=== PATIENT | female | born 1970 | race Caucasian/White ===

== ENCOUNTER 2017-07-09 07:31 | Day surgery (SDC) | payer BC ==
[~2017-07-09] VITALS: Ht 167.6 cm; Wt 67.6 kg
[~2017-07-09 07:31] MED LIST: ARIP10 PO; BUPR150ER PO; CODE30 PO; CRUTCH3 USE; CYCL10 PO; Flomax0.4 MG PO; GAVILYTE-C SO4000 ML PO; IBUP400 PO; IBUP800 PO; LEVSOD50 PO; LITH300C PO; MELO7.5 PO; MODA200 PO; NAPR375 PO; NAPR500 PO; NUVIGIL150 MG; PROM25 PO
[2017-07-09] MEDS ORDERED: IBUP800 (07:55)
== END 2017-07-09 09:19 | disposition home or self-care (01) ==
LOC: ORSCSDS 07:31
PROVIDERS: Anesthesiology
PROC: 3E0R33Z Introduction of Anti-inflammatory into Spinal Canal, Percutaneous Approach (ICD-10-PCS; principal; 2017-07-09 08:30)
DX: M50.122 Cervical disc disorder at C5-C6 level with radiculopathy (principal); E03.9 Hypothyroidism, unspecified; Z87.891 Personal history of nicotine dependence; Z79.899 Other long term (current) drug therapy
CPT/HCPCS: J1040; J2250; J3010

== ENCOUNTER 2017-07-13 19:47 | Emergency (ER) | payer BC ==
[~2017-07-13] VITALS: Ht 167.6 cm; Wt 68.0 kg
[~2017-07-13 19:47] MED LIST changes: +IBUP800
[2017-07-13 21:20] LABS: BASOPHILS ABSOLUTE AUTO 0.02 K/mm3 (0.00-0.23); BASOPHILS PERCENT AUTO 0 % (0-2); EOSINOPHILS ABSOLUTE AUTO 0.01 K/mm3 (0.00-0.68); EOSINOPHILS PERCENT AUTO 0 % (0-6); Hematocrit 37.5 % (33.0-51.0); Hemoglobin 12.8 g/dL (11.5-16.0); IMMATURE GRAN ABSOLUTE AUTO 0.08 K/mm3 (0.00-0.10); IMMATURE GRAN PERCENT AUTO 1 % (0-1); LYMPHOCYTES ABSOLUTE AUTO 1.61 K/mm3 (0.84-5.20); LYMPHOCYTES PERCENT AUTO 15 % (21-46); MONOCYTES PERCENT AUTO 6 % (4-13); Mean Corpuscular HGB 30.5 pg (26.0-34.0); Mean Corpuscular HGB Conc 34.1 g/dL (31.5-36.5); Mean Corpuscular Volume 89 fL (80-100); Mean Platelet Volume 9.9 fL (9.1-12.4); NEUTROPHILS ABSOLUTE AUTO 8.66 K/mm3 (1.96-9.15); NEUTROPHILS PERCENT AUTO 79 % (41-73); Platelet Count 362 K/mm3 (150-400); RDW Coefficient Variation 11.9 % (11.7-14.2); RDW Standard Deviation 38.1 fL (35.1-46.3); White Blood Cell Count 10.98 K/mm3 (4.00-11.30)
[2017-07-13 21:37] LABS: Anion Gap 10 mmol/L (6-16); Blood Urea Nitrogen 15 mg/dL (8-24); Bun/Creatinine Ratio 16.3 (12.0-20.0); CO2, Blood 24 mmol/L (21-32); Calcium, Blood 8.9 mg/dL (8.5-10.1); Chloride, Blood 106 mmol/L (98-108); Creatinine, Blood 0.92 mg/dL (0.40-1.00); Free Thyroxine 0.84 ng/dL (0.70-1.60); Glomerular Filtration Rate >60 (60-); Glucose, Blood 137 mg/dL (70-99); Magnesium, Blood 2.4 mg/dL (1.6-2.4); Potassium, Blood 3.4 mmol/L (3.5-5.5); Sodium, Blood 140 mmol/L (136-145)
[2017-07-13 21:41] LABS: Thyroid Stimulating Hormone 0.556 uIU/mL (0.360-4.800)
== END 2017-07-13 22:22 | disposition home or self-care (01) ==
LOC: ER 19:47
PROVIDERS: Emergency Medicine
DX: R00.2 Palpitations (principal); F31.9 Bipolar disorder, unspecified; Z88.6 Allergy status to analgesic agent; Z88.8 Allergy status to other drugs, medicaments and biological substances; Z88.5 Allergy status to narcotic agent; Z79.899 Other long term (current) drug therapy; Z90.712 Acquired absence of cervix with remaining uterus; Z99.2 Dependence on renal dialysis; Z90.13 Acquired absence of bilateral breasts and nipples
CPT/HCPCS: 36415; 71046; 80048; 83735; 84439; 84443; 85025; 93005; 93010; 99283; J7030

== ENCOUNTER 2019-10-28 13:43 | Day surgery (SDC) | payer BC ==
[~2019-10-28] VITALS: Ht 167.6 cm; Wt 72.1 kg
[~2019-10-28 13:43] MED LIST changes: +MODA200; +Voltaren100 GM
--- NOTE | 2019-10-28 14:51 | NUR ---
10/28/19 [id number] RHINA SCHWARZ Received report from ISATU Sen. Patient is sleeping in pre op bed. IV IN PLACE - READY FOR OR. AWAITING CONSULT WITH SURGEON AND ANESTHESIA. wILL CONTINUE TO MONITOR.
--- NOTE | 2019-10-28 15:47 | NUR ---
10/28/19 1547 Ana Resendiz AND ABDIRAHMAN MURRIETA IN ROOM
--- NOTE | 2019-10-28 17:15 | NUR ---
10/28/19 1715 Nhung Gallegos PATIENT TO SDU AND ABLE TO TRANSFER TO CHAIR WITH MINIMAL ASSISTANCE. SPLINT IS STILL DRYING. ONCE PATIENT IS IN RECLINER, FOOT IS ELEVATED AND ICE APPLIED BEHIND THE KNEE. PATIENT STATES TO PAIN AT THIS TIME. PATIENT IS GIVEN WATER AND SNACK
== END 2019-10-28 17:46 | disposition home or self-care (01) ==
LOC: ORSCSDS 13:43
PROVIDERS: Podiatrist Foot & Ankle Surgery
PROC: 0SGN04Z Fusion of Left Metatarsal-Phalangeal Joint with Internal Fixation Device, Open Approach (ICD-10-PCS; principal; 2019-10-28 15:00)
DX: M20.12 Hallux valgus (acquired), left foot (principal); M20.5X2 Other deformities of toe(s) (acquired), left foot; Z87.891 Personal history of nicotine dependence; Z79.899 Other long term (current) drug therapy
CPT/HCPCS: A9270-GY; C1776; J0171; J0690; J1100; J1885; J2250; J2405; J2704; J3010; J7120

== ENCOUNTER → 2020-01-07 | Outpatient (CLI) | payer BC ==
[2020-01-09 13:15] LABS: Stool Occult Bld Immuno 1 Negative (NEGATIVE); Stool Occult Bld Immuno 2 Negative (NEGATIVE)
== END | disposition home or self-care (01) ==
LOC: LAB SHORT 07:50 → LAB 07:50
PROVIDERS: Internal Medicine Gastroenterology
DX: Z12.11 Encounter for screening for malignant neoplasm of colon (principal)
CPT/HCPCS: G0328

== ENCOUNTER 2020-11-19 08:46 | Day surgery (SDC) | payer BC ==
[~2020-11-19] VITALS: Ht 167.6 cm; Wt 69.6 kg
[2020-11-19] MEDS ORDERED: LINZESS72 MCG (09:40)
== END 2020-11-19 11:42 | disposition home or self-care (01) ==
LOC: ORSCSDS 08:46
PROVIDERS: Internal Medicine Gastroenterology
PROC: 0DBK8ZX Excision of Ascending Colon, Via Natural or Artificial Opening Endoscopic, Diagnostic (ICD-10-PCS; principal; 2020-11-19 10:30)
PROC: 0DBN8ZX Excision of Sigmoid Colon, Via Natural or Artificial Opening Endoscopic, Diagnostic (ICD-10-PCS; principal; 2020-11-19 10:30)
DX: Z12.11 Encounter for screening for malignant neoplasm of colon (principal); D12.5 Benign neoplasm of sigmoid colon; D37.4 Neoplasm of uncertain behavior of colon; Z79.899 Other long term (current) drug therapy
CPT/HCPCS: 88305; J2704; J7120

== ENCOUNTER → 2022-03-17 | Outpatient (CLI) | payer BC ==
[~2022-03-17] MED LIST changes: +LINZESS72 MCG
== END ==
LOC: LAB SHORT 10:09 → LAB 10:09
DX: R31.9 Hematuria, unspecified (principal)
CPT/HCPCS: 87086

== ENCOUNTER → 2022-04-21 | Outpatient (CLI) | payer BC ==
[2022-04-21 10:38] LABS: Microalbumin, Urine Quant. 6.07 mg/L (0.000-20.000); Protein, Urine Quantitative 11.6 mg/dL (0.0-11.9)
== END | disposition home or self-care (01) ==
LOC: LAB SHORT 08:01 → LAB 08:01 → LAB FUT 04-10 15:50
PROVIDERS: Internal Medicine Nephrology
DX: N18.30 Chronic kidney disease, stage 3 unspecified (principal); D63.1 Anemia in chronic kidney disease; N25.81 Secondary hyperparathyroidism of renal origin; E55.9 Vitamin D deficiency, unspecified; N13.30 Unspecified hydronephrosis; R32 Unspecified urinary incontinence; N20.0 Calculus of kidney; R76.9 Abnormal immunological finding in serum, unspecified; R94.5 Abnormal results of liver function studies; R94.6 Abnormal results of thyroid function studies
CPT/HCPCS: 81050; 82043; 82570; 84156

== ENCOUNTER → 2022-05-27 | Outpatient (CLI) | payer BC ==
[2022-05-27 10:03] LABS: Protein, Urine Quantitative 7.8 mg/dL (0.0-11.9)
[2022-05-27 10:19] LABS: Microalbumin, Urine Quant. 8.34 mg/L (0.000-20.000)
== END | disposition home or self-care (01) ==
LOC: LAB 06:00 → LAB SHORT 06:00 → LAB FUT 05-20 07:50
PROVIDERS: Internal Medicine Nephrology
DX: N18.30 Chronic kidney disease, stage 3 unspecified (principal); D63.1 Anemia in chronic kidney disease; N25.81 Secondary hyperparathyroidism of renal origin; E55.9 Vitamin D deficiency, unspecified; E78.00 Pure hypercholesterolemia, unspecified; R76.9 Abnormal immunological finding in serum, unspecified; R94.5 Abnormal results of liver function studies; R94.6 Abnormal results of thyroid function studies; D51.8 Other vitamin B12 deficiency anemias; D52.8 Other folate deficiency anemias; D50.9 Iron deficiency anemia, unspecified
CPT/HCPCS: 81050; 82043; 82570; 84156

== ENCOUNTER → 2024-05-05 | Outpatient (CLI) | payer BC ==
[2024-05-05 15:39] LABS: U Amphetamine Screen Not Detected; U Barbituate Screen Not Detected; U Benzodiazapine Screen Not Detected; U Buprenorphine Screen Not Detected; U Cannabinoids Screen DETECTED; U Cocaine Screen Not Detected; U Methadone Screen Not Detected; U Methamphetamine Screen Not Detected; U Opiates Screen Not Detected; U Oxycodone Screen Not Detected; U Phencyclidine Screen Not Detected
== END | disposition home or self-care (01) ==
LOC: LAB 13:00 → LAB SHORT 13:00
PROVIDERS: Internal Medicine Critical Care Medicine
DX: G47.411 Narcolepsy with cataplexy (principal); R40.0 Somnolence

== ENCOUNTER → 2024-08-12 | Outpatient (CLI) | payer BC ==
[2024-08-13 08:44] LABS: Candida glabrata-krusei, PCR NOT DETECTED (NOT DETECT)
[2024-08-13 09:56] LABS: Bacterial Vaginosis PCR Positive (NEGATIVE); Candida Group, PCR DETECTED (NOT DETECT)
== END ==
LOC: LAB 17:58 → LAB SHORT 17:58
PROVIDERS: Emergency Medicine
DX: N89.8 Other specified noninflammatory disorders of vagina (principal)
CPT/HCPCS: 81515

== ENCOUNTER → 2025-05-07 | Outpatient (CLI) | payer BC ==
[~2025-05-07] MED LIST changes: +Cyclobenzaprine5 MG PO; +DOTTI1 EA19 TOP; +EUTHYROX75 MC1 PO; +IBUP600 PO; +MODAFINIL100 M4; +ONDA4ODT MM; +PROG100; +Testosterone5 GM; +VRAYLAR4.5 MG PO
[2025-05-08 18:24] LABS: Microalbumin, Urine Quant. 7.47 mg/L (0.000-20.000); Protein, Urine Quantitative 6.3 mg/dL (0.0-11.9)
== END ==
LOC: LAB SHORT 14:42 → LAB 14:42 → LAB FUT 05-01 12:20
PROVIDERS: Internal Medicine Nephrology
DX: N18.2 Chronic kidney disease, stage 2 (mild) (principal); D63.1 Anemia in chronic kidney disease
CPT/HCPCS: 81050; 82043; 82570; 84156